=== PATIENT | female | born 1975 | race Caucasian/White ===

== ENCOUNTER 2021-02-03 13:05 | Outpatient (CLI) | payer OTHER | END 2021-02-03 13:06 | disposition home or self-care (01) | LOC: CSHMAMMO 13:05 | PROVIDERS: ATTEND Internal Medicine | DX: Z12.31 Encounter for screening mammogram for malignant neoplasm of breast (principal) | CPT/HCPCS: 77063; 77067 ==

== ENCOUNTER 2022-02-08 15:01 | Outpatient (CLI) | payer OTHER | END 2022-02-08 15:02 | disposition home or self-care (01) | LOC: CSHMAMMO 15:01 | PROVIDERS: ATTEND Internal Medicine | DX: Z12.31 Encounter for screening mammogram for malignant neoplasm of breast (principal) | CPT/HCPCS: 77063; 77067 ==

== ENCOUNTER 2023-02-20 12:37 | Outpatient (CLI) | payer OTHER | END 2023-02-20 12:38 | disposition home or self-care (01) | LOC: CSHMAMMO 12:37 | PROVIDERS: ATTEND Internal Medicine | DX: Z12.31 Encounter for screening mammogram for malignant neoplasm of breast (principal) | CPT/HCPCS: 77063; 77067 ==

== ENCOUNTER 2024-02-25 15:15 | Outpatient (CLI) | payer OTHER | END 2024-02-25 15:16 | disposition home or self-care (01) | LOC: CSHMAMMO 15:15 | PROVIDERS: ATTEND Obstetrics & Gynecology | DX: Z12.31 Encounter for screening mammogram for malignant neoplasm of breast (principal) | CPT/HCPCS: 77063; 77067 ==